=== PATIENT | male | born 1995 | race Caucasian/White ===

== ENCOUNTER 2016-06-26 12:47 | Emergency (ER) | payer MEDICAID, OTHER ==
[~2016-06-26] VITALS: Ht 177.8 cm; Wt 65.0 kg
[~2016-06-26 12:47] MED LIST: AMOX875T PO; CYCL5TAB PO; DICL75 PO; Z.0.NO CURRENT MEDS; ZITH250T PO
[2016-06-26 12:49] VITALS: BP 136/92; PULSE 92; RESP 20; TEMP 98.1; O2SAT 99
--- NOTE | 2016-06-26 13:06 | PD ---
Physical Exam Date Seen by Provider: Jun 26, 2016 Time Seen by Provider: 13:04 Narrative 21 yo male that presents to the ED for evaluation of stomach pain, N/V for 4-5 days. Believes something he ate caused this. Unsure as to what. Thought he would be better but cannot keep anything down. Pain to his abdomen with the vomiting. No chest pain or SOB. Pain is 4/10. Cannot keep fluids down. No recent travel. Vitals sign stable. Patient awaiting bed placement. Data Data Last Documented VS Vital Signs Date Time Temp Pulse Resp B/P Pulse Ox O2 Delivery O2 Flow Rate FiO2 06/26/16 12:49 98.1 92 20 136/92 99 Room Air [facility] Medical Record Reviewed: Yes Supervised Visit with RUBIO: Aj Soria Jun 26, 2016 13:06
[2016-06-26] MEDS ORDERED: SODIUM CHLOR 0.9% 1000 ML INJ 1,000 ML IV SCH ×2 (14:07→15:04)
--- NOTE | 2016-06-26 14:09 | PD ---
HPI Chief Complaint: Abdominal Pain Time Seen by Provider: 14:09 Travel History International Travel<30 days: No Contact w/Intl Traveler<30days: No Traveled to known affect area: No History of Present Illness HPI 21-year-old male presents to the emergency department for evaluation of abdominal pain, nausea and vomiting for 4 days. The patient states that the vomiting has been progressively worsening over the last several days. States that he had 10 episodes of nonbloody nonbilious emesis today. States he has been able keep down any food or fluids over the last several days. He is complaining of left upper quadrant and epigastric pain. States that this pain is aggravated with smoking cigarettes. Denies any fever, chills, diarrhea, constipation, bloody stool, dysuria, cough or cold symptoms. Denies any recent travel or sick contacts. Denies any prior abdominal surgeries. Denies alcohol or drug use. No other complaints. PFSH Past Medical History Respiratory: Yes (ASTHMA CHILD ) Immunizations Current: Yes Past Surgical History Surgical History: No Previous Surgery Social History Alcohol Use: No Tobacco Use: Yes Substance Use: No Allergies-Medications (Allergen,Severity, Reaction): Coded Allergies: No Known Allergies (Unverified , 06/14/15) Reported Meds & Prescriptions Reported Meds & Active Scripts Active Amoxil (Amoxicillin) 875 Mg Tab 875 Mg PO BID 10 Days Zithromax Z-Lucas (Azithromycin) 250 Mg Tab 250 Mg PO DAILY 6 Days Flexeril (Cyclobenzaprine HCl) 5 Mg Tab 1 Tab PO Q8HPRN Diclofenac Sodium 75 Mg Tab 75 Mg PO BID 7 Days Reported No Current Meds (Miscellaneous Medication) [facility] Review of Systems Except as stated in HPI: all other systems reviewed are Neg Physical Exam Narrative GENERAL: Well-nourished and well-developed pleasant patient in no acute distress who is nontoxic appearing. SKIN: Warm and dry. HEAD: Normocephalic and atraumatic. EYES: No injection, drainage, or hyphema noted. PERRLA. EOMI. ENT: No nasal drainage noted. Oropharynx is clear. NECK: Supple and the trachea is midline. CARDIOVASCULAR: Regular rate and rhythm. RESPIRATORY: Breath sounds are equal bilaterally with no accessory muscle use, wheezing, rhonchi, or crackles. GASTROINTESTINAL: Epigastric and left upper quadrant tenderness to palpation. Right lower quadrant tenderness to palpation. Abdomen is soft and nondistended. No rebound tenderness or guarding. Negative Panchal's sign. MUSCULOSKELETAL: No obvious deformities, swelling, cyanosis, or ecchymosis is present throughout the upper and lower extremities. Patient has full range of motion without any signs of neurovascular compromise. NEUROLOGICAL: Awake, alert, and oriented. Normal speech and gait. Cranial nerves are grossly intact. Data Data Last Documented VS Vital Signs Date Time Temp Pulse Resp B/P Pulse Ox O2 Delivery O2 Flow Rate FiO2 06/26/16 12:49 98.1 92 20 136/92 99 Room Air Orders Complete Blood Count With Diff (06/26/16 14:07) Comprehensive Metabolic Panel (06/26/16 14:07) Lipase (06/26/16 14:07) Iv Access Insert/Monitor (06/26/16 14:07) Ecg Monitoring (06/26/16 14:07) Oximetry (06/26/16 14:07) Ondansetron Inj (Zofran Inj) (06/26/16 14:15) Sodium Chlor 0.9% 1000 Ml Inj (Ns 1000 M (06/26/16 14:07) Sodium Chloride 0.9% Flush (Ns Flush) (06/26/16 14:15) Morphine Inj (Morphine Inj) (06/26/16 14:15) Urinalysis - C+S If Indicated (06/26/16 14:07) Ct Abd/Pel W Iv Contrast(Rout) (06/26/16 14:32) Sodium Chlor 0.9% 1000 Ml Inj (Ns 1000 M (06/26/16 15:04) Iohexol 350 Inj (Omnipaque 350 Inj) (06/26/16 15:22) Metoclopramide Inj (Reglan Inj) (06/26/16 16:30) Prochlorperazine Inj (Compazine Inj) (06/26/16 17:15) Pantoprazole Inj (Protonix Inj) (06/26/16 17:15) Labs Laboratory Tests Test 06/26/16 06/26/16 14:16 16:30 White Blood Count 17.4 TH/MM3 Red Blood Count 5.35 MIL/MM3 Hemoglobin 16.3 GM/DL Hematocrit 46.8 % Mean Corpuscular Volume 87.4 FL Mean Corpuscular Hemoglobin 30.5 PG Mean Corpuscular Hemoglobin 34.8 % Concent Red Cell Distribution Width 13.1 % Platelet Count 211 TH/MM3 Mean Platelet Volume 8.5 FL Neutrophils (%) (Auto) 87.2 % Lymphocytes (%) (Auto) 4.4 % Monocytes (%) (Auto) 7.8 % Eosinophils (%) (Auto) 0.0 % Basophils (%) (Auto) 0.6 % Neutrophils # (Auto) 15.2 TH/MM3 Lymphocytes # (Auto) 0.8 TH/MM3 Monocytes # (Auto) 1.4 TH/MM3 Eosinophils # (Auto) 0.0 TH/MM3 Basophils # (Auto) 0.1 TH/MM3 CBC Comment DIFF FINAL Differential Comment Sodium Level 145 MEQ/L Potassium Level 4.2 MEQ/L Chloride Level 108 MEQ/L Carbon Dioxide Level 27.7 MEQ/L Anion Gap 9 MEQ/L Blood Urea Nitrogen 21 MG/DL Creatinine 1.46 MG/DL Estimat Glomerular Filtration 62 ML/MIN Rate Random Glucose 96 MG/DL Calcium Level 10.2 MG/DL Total Bilirubin 1.1 MG/DL Aspartate Amino Transf 24 U/L (AST/SGOT) Alanine Aminotransferase 25 U/L (ALT/SGPT) Alkaline Phosphatase 84 U/L Total Protein 8.4 GM/DL Albumin 5.3 GM/DL Lipase 273 U/L Urine Color YELLOW Urine Turbidity CLEAR Urine pH 6.5 Urine Specific Baudette 1.048 Urine Protein 100 mg/dL Urine Glucose (UA) NEG mg/dL Urine Ketones 10 mg/dL Urine Occult Blood NEG Urine Nitrite NEG Urine Bilirubin NEG Urine Urobilinogen LESS THAN 2.0 MG/DL Urine Leukocyte Esterase NEG Urine WBC LESS THAN 1 /hpf Urine Hyaline Casts 4 /lpf Urine Granular Casts 2 /lpf Urine Mucus FEW /lpf Microscopic Urinalysis Comment CULT NOT INDICATED MDM Medical Decision Making Medical Screen Exam Complete: Yes Emergency Medical Condition: Yes Differential Diagnosis Gastritis versus pancreatitis versus appendicitis versus gastroenteritis versus colitis Narrative Course 21-year-old male presents to the emergency department for evaluation of abdominal pain, nausea and vomiting for 3-4 days. Patient is afebrile. He is slightly tachycardic with a heart rate of 92 bpm. Otherwise vital signs are within normal limits. He does have epigastric tenderness to palpation but also has right lower quadrant tenderness to palpation. No peritoneal signs. IV access was obtained, labs were drawn and sent. Patient is placed on cardiac telemetry and pulse oximetry monitoring. Patient is given IV fluids and Zofran. CT of the abdomen and pelvis has been ordered and is pending. CBC shows elevated white blood cell count of 17.4. CMP shows mild dehydration with an elevated creatinine of 1.46, BUN 21, GFR 62. Otherwise unremarkable for any acute abnormalities. Urinalysis shows 100 protein, 10 ketones, few mucus. CT of the abdomen and pelvis is negative for any acute abnormalities. The patient has been given IV fluids, Zofran, Reglan and Compazine. He was also given Protonix. He has been given a by mouth challenge and is able to keep down Gatorade and crackers. States he is feeling much better. I did give the patient the option of observation overnight however he would like to be discharged home. Since he has been able to keep fluids down I think this is reasonable. I did discuss with him that should he develop any worsening symptoms or experienced vomiting despite taking antiemetics that he should return immediately to the emergency department. Patient verbalizes understanding and is in agreement with treatment plan. I discussed the case with my attending physician Dr. Nelson who is aware of the patients history, physical examination findings, and treatment plan. Diagnosis Primary Impression: Nausea and vomiting Qualified Code: R11.2 - Non-intractable vomiting with nausea, unspecified vomiting type Additional Impression: Epigastric pain Referrals: Primary Care Physician Patient Instructions: Acute Nausea and Vomiting (ED), General Instructions Additional Instructions: Try to eat bland foods at first - such as bananas, rice, applesauce, toast. Stay adequately hydrated. Take medications as prescribed. Follow-up with your Primary Care Physician. Return to the ED for any acute worsening of symptoms such as vomiting after taking Phenergan, worsening abdominal pain, or fever. Med/Other Pt SpecificInfo: Prescription(s) given Scripts Promethazine (Phenergan)25 Mg Tab25 Mg PO Q6H PRN (Nausea/Vomiting) #10 TAB Ref 0 Prov:Khoi Nelson MD 06/26/16 Disposition: 01 DISCHARGE HOME Condition: Stable Meenakshi Whipple Jun 26, 2016 14:09
[2016-06-26] MEDS ORDERED: SODIUM CHLORIDE 0.9% FLUSH 10 ML FLUSH IV FLUSH PRN (14:15)
[2016-06-26] MEDS ORDERED: MORPHINE SULFATE 4 MG/ML INJ IV PUSH ONE (14:15)
[2016-06-26] MEDS ORDERED: ONDANSETRON HCL 4 MG/2 ML VIAL IVP ONE (14:15)
[2016-06-26 14:27] LABS: AUTOMATED NEUTROPHIL # 15.2 TH/MM3 (1.8-7.7); BASOPHIL # 0.1 TH/MM3 (0-0.2); BASOPHIL % 0.6 % (0.0-2.0); HEMATOCRIT 46.8 % (39.0-51.0); HEMO FLAGS DIFF FINAL; LYMPH % 4.4 % (9.0-44.0); LYMPHOCYTE # 0.8 TH/MM3 (1.0-4.8); MEAN CELL VOLUME 87.4 FL (80.0-100.0); MEAN CORPUSCULAR HEMOGLOBIN 30.5 PG (27.0-34.0); MEAN CORPUSCULAR HGB CONC 34.8 % (32.0-36.0); MONO % 7.8 % (0.0-8.0); NEUT % 87.2 % (16.0-70.0); PLATELET COUNT 211 TH/MM3 (150-450); RED BLOOD COUNT 5.35 MIL/MM3 (4.50-5.90); RED CELL DISTRIBUTION WIDTH 13.1 % (11.6-17.2); WHITE BLOOD COUNT 17.4 TH/MM3 (4.0-11.0)
[2016-06-26 14:47] LABS: ALKALINE PHOSPHATASE 84 U/L (45-117); ALT (GPT) 25 U/L (9-52); TOTAL BILIRUBIN ADULT 1.1 MG/DL (0.2-1.0)
[2016-06-26 14:49] LABS: ANION GAP 9 MEQ/L (5-15); AST (GOT) 24 U/L (15-39); BICARBONATE 27.7 MEQ/L (21.0-32.0); BLOOD UREA NITROGEN 21 MG/DL (7-18); CHLORIDE 108 MEQ/L (98-107); GLOMERULAR FILTRATION RATE 62 ML/MIN (>89); POTASSIUM 4.2 MEQ/L (3.5-5.1); SODIUM (NA) 145 MEQ/L (136-145)
[2016-06-26] MEDS ORDERED: IOHEXOL 350 MG/ML 10 ML VIAL (for RAD DIAG) IV ONE (15:22)
--- NOTE | 2016-06-26 15:45 | RADRPT ---
EXAM DATE/TIME: 06/26/2016 15:17 1 [facility] COMPARISON: No previous studies available for comparison. INDICATIONS : Abdomen pain. IV CONTRAST: 100 cc Omnipaque 350 (iohexol) IV ORAL CONTRAST: No oral contrast ingested. RADIATION DOSE: 5.36 CTDIvol (mGy) MEDICAL HISTORY : None SURGICAL HISTORY : None. ENCOUNTER: Initial ACUITY: 4 - 6 months PAIN SCALE: 5/10 LOCATION: Bilateral abdomen. TECHNIQUE: Volumetric scanning of the abdomen and pelvis was performed. Using automated exposure control and ad justment of the mA and/or kV according to patient size, radiation dose was kept as low as reasonably achievable to obtain optimal diagnostic quality images. FINDINGS: LOWER LUNGS: The visualized lower lungs are clear. LIVER: Homogeneous density without lesion. There is no dilation of the biliary tree. No calcified gallston es. SPLEEN: Normal size without lesion. PANCREAS: Within normal limits. KIDNEYS: Normal in size and shape. There is no mass, stone or hydronephrosis. ADRENAL GLANDS: Within normal limits. VASCULAR: There is no aortic aneurysm. BOWEL/MESENTERY: The stomach, small bowel, and colon demonstrate no acute abnormality. There is no free intraperitone al air or fluid. There is apparent minimal contrast in a portion of the bowel limiting sensitivity. ABDOMINAL WALL: Within normal limits. RETROPERITONEUM: There is no lymphadenopathy. BLADDER: No wall thickening or mass. REPRODUCTIVE: Within normal limits. INGUINAL: There is no lymphadenopathy or hernia. MUSCULOSKELETAL: Within normal limits for patient age. CONCLUSION: Unremarkable exam. Only limited contrast in a small portion of the bowel limiting the sensitivity. Kenneth Juan MD on June 26, 2016 at 15:37 Board Certified Radiologist. This report was verified electronically.
[2016-06-26] MEDS ORDERED: METOCLOPRAMIDE HCL 10 MG/2 ML VIAL IV PUSH ONE (16:30)
[2016-06-26] MEDS ORDERED: PROCHLORPERAZINE INJ 10 MG/2 ML VIAL IV PUSH ONE (17:15)
[2016-06-26] MEDS ORDERED: PANTOPRAZOLE SODIUM 40 MG VIAL IVP ONE (17:15)
[2016-06-26 17:24] LABS: BLOOD, URINE NEG (NEG); COMMENT (UR) CULT NOT INDICATED; CULTURE IF INDICATED CULT NOT INDICATED; GLUCOSE,URINE NEG (NEG); GRANULAR CAST, URINE 2 /lpf; HYALINE CAST, URINE 4 /lpf (RARE); KETONE, URINE 10 mg/dL (NEG); MUCUS URINE FEW /lpf (OCC); NITRITE,URINE NEG (NEG); PH, URINE 6.5 (5.0-8.5); URINE COLOR YELLOW (YELLW/STRAW)
[2016-06-26] MEDS ORDERED: PROM25TA5 PO (18:30)
== END 2016-06-26 19:00 | disposition home or self-care (01) ==
LOC: NEPD 12:47
DX: R11.2 Nausea with vomiting, unspecified (principal); R10.13 Epigastric pain; Z72.0 Tobacco use
CPT/HCPCS: 74177; 80053; 81001; 83690; 85025; 96361; 96374; 96375; 99284; C9113; J0780; J2405; J2765; J7030; Q9967

== ENCOUNTER 2016-08-17 17:56 | Emergency (ER) | payer MEDICAID ==
[~2016-08-17] VITALS: Ht 177.8 cm; Wt 70.0 kg
[~2016-08-17 17:56] MED LIST changes: +PROM25TA5 PO
--- NOTE | 2016-08-17 20:20 | RADRPT ---
EXAM DATE/TIME: 08/17/2016 20:04 [facility] COMPARISON: No previous studies available for comparison. INDICATIONS : Chest pain. MEDICAL HISTORY : Asthma. SURGICAL HISTORY : None. ENCOUNTER: Initial ACUITY: 2 days PAIN SCORE: 8/10 LOCATION: Bilateral chest FINDINGS: PA and lateral views of the chest demonstrate a normal-sized cardiac silhouette. There is no effusion , consolidation, or pneumothorax. The bones and soft tissues demonstrate no acute abnormality. CONCLUSION: No acute abnormality is identified. Roverto Abrams MD on August 17, 2016 at 20:17 Board Certified Radiologist. This report was verified electronically.
[2016-08-17 20:48] VITALS: BP 143/81; PULSE 65; RESP 18; O2SAT 99
[2016-08-17 20:49] LABS: BASOPHIL % 0.2 % (0.0-2.0); EOSINOPHIL % 0.1 % (0.0-4.0); HEMATOCRIT 48.7 % (39.0-51.0); HEMO FLAGS DIFF FINAL; LYMPH % 4.9 % (9.0-44.0); LYMPHOCYTE # 0.6 TH/MM3 (1.0-4.8); MEAN CELL VOLUME 87.4 FL (80.0-100.0); MEAN CORPUSCULAR HEMOGLOBIN 29.9 PG (27.0-34.0); MEAN CORPUSCULAR HGB CONC 34.2 % (32.0-36.0); MONO % 6.2 % (0.0-8.0); NEUT % 88.6 % (16.0-70.0); PLATELET COUNT 120 TH/MM3 (150-450); RED BLOOD COUNT 5.57 MIL/MM3 (4.50-5.90); RED CELL DISTRIBUTION WIDTH 13.5 % (11.6-17.2); WHITE BLOOD COUNT 11.3 TH/MM3 (4.0-11.0)
[2016-08-17] MEDS ORDERED: KETOROLAC TROMETHAMINE 30 MG/ML (IVP) VIAL IV PUSH ONE (21:00)
[2016-08-17 21:08] LABS: AST (GOT) 17 U/L (15-39); BICARBONATE 27.6 MEQ/L (21.0-32.0); BLOOD UREA NITROGEN 14 MG/DL (7-18); CHLORIDE 102 MEQ/L (98-107); GLOMERULAR FILTRATION RATE 101 ML/MIN (>89); POTASSIUM 4.3 MEQ/L (3.5-5.1); SODIUM (NA) 138 MEQ/L (136-145)
[2016-08-17 21:09] LABS: ANION GAP 8 MEQ/L (5-15)
[2016-08-17 21:12] LABS: ALKALINE PHOSPHATASE 75 U/L (45-117); ALT (GPT) 22 U/L (9-52); TOTAL BILIRUBIN ADULT 0.8 MG/DL (0.2-1.0)
[2016-08-17 21:26] LABS: APTT (PATIENT) 26.4 SEC (24.3-30.1); INTERNATIONAL NORMALIZED RATIO 1.2 RATIO; PROTHROMBIN TIME - PATIENT 12.8 SEC (9.8-11.6)
--- NOTE | 2016-08-17 22:21 | PD ---
HPI Chief Complaint: GI Complaint Time Seen by Provider: 20:35 Travel History International Travel<30 days: No Contact w/Intl Traveler<30days: No Traveled to known affect area: No History of Present Illness HPI Patient is a 21-year-old male who comes in complaining of nausea and vomiting. He says that last night after he ate some chicken, started vomiting several times. He does report that after vomiting several times, he noticed some streaks of blood in his vomit. He says he did take some Phenergan, and he seems to stop vomiting as of 2 hours ago. He denies any abdominal pain, but now he is feeling some pain in his chest. He denies fever or chills. Denies shortness of breath. He says overall since taking the Phenergan, he is started to feel better. He has been able to drink Gatorade without vomiting. [facility] Past Medical History Respiratory: Yes (ASTHMA CHILD ) Immunizations Current: Yes Past Surgical History Surgical History: No Previous Surgery Social History Alcohol Use: No Tobacco Use: Yes (1/2PPD) Substance Use: No Allergies-Medications (Allergen,Severity, Reaction): Coded Allergies: No Known Allergies (Unverified , 08/17/16) Reported Meds & Prescriptions Reported Meds & Active Scripts Active No Active Prescriptions or Reported Medications Review of Systems Except as stated in HPI: all other systems reviewed are Neg General / Constitutional: No: Fever, Chills HENT: No: Headaches, Lightheadedness Cardiovascular: Positive: Chest Pain or Discomfort Respiratory: No: Cough, Shortness of Breath Gastrointestinal: Positive: Nausea, Vomiting, No: Abdominal Pain Genitourinary: No: Dysuria Musculoskeletal: No: Pain Skin: No Rash, No Change in Pigmentation Neurologic: No: Weakness, Dizziness Physical Exam Narrative GENERAL: Awake and alert, in no acute distress. SKIN: Focused skin assessment warm/dry. HEAD: Atraumatic. Normocephalic. EYES: Pupils equal and round. No scleral icterus. ENT: No nasal bleeding or discharge. Mucous membranes pink and moist. NECK: Trachea midline. No JVD. CARDIOVASCULAR: Regular rate and rhythm. No murmur appreciated. No chest wall crepitus or tenderness. RESPIRATORY: No accessory muscle use. Clear to auscultation. Breath sounds equal bilaterally. GASTROINTESTINAL: Abdomen soft, non-tender, nondistended. MUSCULOSKELETAL: No obvious deformities. No clubbing. No cyanosis. No edema. NEUROLOGICAL: Awake and alert. No obvious cranial nerve deficits. Motor grossly within normal limits. Normal speech. PSYCHIATRIC: Appropriate mood and affect; insight and judgment normal. Data Data Last Documented VS Vital Signs Date Time Temp Pulse Resp B/P Pulse Ox O2 Delivery O2 Flow Rate FiO2 08/17/16 20:48 65 18 143/81 99 Room Air Orders Complete Blood Count With Diff (08/17/16 19:41) Comprehensive Metabolic Panel (08/17/16 19:41) Lactic Acid (08/17/16 19:41) Prothrombin Time / Inr (Pt) (08/17/16 19:41) Act Partial Throm Time (Ptt) (08/17/16 19:41) Chest, Pa & Lat (08/17/16 ) Troponin I (08/17/16 20:48) Ketorolac Inj (Toradol Inj) (08/17/16 21:00) Electrocardiogram (08/17/16 ) Labs Laboratory Tests Test 08/17/16 08/17/16 20:10 20:45 White Blood Count 11.3 TH/MM3 Red Blood Count 5.57 MIL/MM3 Hemoglobin 16.6 GM/DL Hematocrit 48.7 % Mean Corpuscular Volume 87.4 FL Mean Corpuscular Hemoglobin 29.9 PG Mean Corpuscular Hemoglobin 34.2 % Concent Red Cell Distribution Width 13.5 % Platelet Count 120 TH/MM3 Mean Platelet Volume 9.1 FL Neutrophils (%) (Auto) 88.6 % Lymphocytes (%) (Auto) 4.9 % Monocytes (%) (Auto) 6.2 % Eosinophils (%) (Auto) 0.1 % Basophils (%) (Auto) 0.2 % Neutrophils # (Auto) 10.0 TH/MM3 Lymphocytes # (Auto) 0.6 TH/MM3 Monocytes # (Auto) 0.7 TH/MM3 Eosinophils # (Auto) 0.0 TH/MM3 Basophils # (Auto) 0.0 TH/MM3 CBC Comment DIFF FINAL Differential Comment Prothrombin Time 12.8 SEC Prothromb Time International 1.2 RATIO Ratio Activated Partial 26.4 SEC Thromboplast Time Sodium Level 138 MEQ/L Potassium Level 4.3 MEQ/L Chloride Level 102 MEQ/L Carbon Dioxide Level 27.6 MEQ/L Anion Gap 8 MEQ/L Blood Urea Nitrogen 14 MG/DL Creatinine 0.95 MG/DL Estimat Glomerular Filtration 101 ML/MIN Rate Random Glucose 99 MG/DL Lactic Acid Level 1.9 mmol/L Calcium Level 9.0 MG/DL Total Bilirubin 0.8 MG/DL Aspartate Amino Transf 17 U/L (AST/SGOT) Alanine Aminotransferase 22 U/L (ALT/SGPT) Alkaline Phosphatase 75 U/L Total Protein 7.5 GM/DL Albumin 4.3 GM/DL Troponin I LESS THAN 0.02 NG/ML MDM Medical Decision Making Medical Screen Exam Complete: Yes Emergency Medical Condition: Yes Medical Record Reviewed: Yes Interpretation(s) ECG shows normal sinus rhythm at 62, no ST elevation or depression, normal intervals Differential Diagnosis Gastroenteritis versus gastritis versus muscle strain Narrative Course Patient is a 21-year-old male who comes in complaining of nausea, vomiting, chest pain. He says his vomiting has improved, but now his chest hurts, which she says feels like a muscle strain. Exam shows no acute abnormalities. IV established, labs sent. Labs show no acute abnormalities. Troponin is negative. Chest x-ray performed shows no acute abnormalities. Able to drink without vomiting. He is given Toradol for pain. He says he feels better. He' ll be discharged home. He is advised to drink plenty of fluids. Advised to eat a bland diet. Advised to follow-up with a primary care doctor. Advised to return to the ED as needed for any worsening symptoms. Last 24 hours Impressions Chest X-Ray 08/17/16 0000 Signed Impressions: Service Date/Time: Wednesday, August 17, 2016 20:04 - CONCLUSION: No acute abnormality is identified. Roverto Abrams MD Diagnosis Primary Impression: Nausea and vomiting Qualified Code: R11.2 - Non-intractable vomiting with nausea, unspecified vomiting type Patient Instructions: Acute Nausea and Vomiting (ED), General Instructions Additional Instructions: Drink plenty of fluids. Eat a bland diet. Follow-up with a primary care doctor. Return to the emergency department as needed for any worsening symptoms. Scripts No Active Prescriptions or Reported Meds Disposition: DISCHARGE HOME Condition: Stable Lelo Farias MD Aug 17, 2016 22:21
--- NOTE | 2016-08-18 17:15 | EKG ---
Date Performed: 08/17/2016 Time Performed: 22:27:14 PTAGE: 21 years EKG: Sinus rhythm WITH SINUS ARRHYTHMIA NORMAL ECG NO PREVIOUS TRACING DOCTOR: Domenica Soriano Interpretating Date/Time 08/18/2016 17:10:05
== END 2016-08-17 22:52 | disposition home or self-care (01) ==
LOC: NEPD 17:56
DX: R11.2 Nausea with vomiting, unspecified (principal); F17.210 Nicotine dependence, cigarettes, uncomplicated
CPT/HCPCS: 71020; 80053; 83605; 84484; 85025; 85610; 85730; 93005; 96374; 99284; J1885